=== PATIENT | male | born 1975 | race Caucasian/White ===

== ENCOUNTER 2016-10-28 21:00 | Emergency (ER) ==
--- NOTE | 2016-10-28 21:47 | PROVIDER DOCUMENTATION ---
HPI-Respiratory General - General Chief Complaint: Cough Stated Complaint: COUGH Time Seen by Provider: 10/28/16 21:42 Source: patient Allergies/Adverse Reactions: Patient Allergies Allergy/AdvReac Type Severity Reaction Status Date / Time No Known Allergies Allergy Verified 10/28/16 21:10 - History of Present Illness-Resp Nature of Presenting Problem: 41 y/o WM c/o cough x 2 years. Pt states that he was seen at an urgent care 2 years ago and was given a cough syrup, but states it didn't help. Pt states he is taking OTC medications like dayquil for the last 2 years but it is not helping. Pt states no productive cough normally, but states today productive of bloody sputum. Also reports bilat. hip pain, worse with weather. Denies any other sxs. Pt states he has HTN, but does not take anything for it. Review of Systems - Adult - REVIEW OF SYSTEMS - ADULT Constitutional: reports: no symptoms reported. denies: chills, fever Eyes: reports: no symptoms reported. denies: blurred vision, double vision Ears, Nose, Mouth & Throat: reports: no symptoms reported. denies: ear pain, nose pain Cardiovascular: reports: no symptoms reported. denies: chest pain, palpitations Respiratory: reports: see HPI, cough. denies: dyspnea on exertion, shortness of breath Gastrointestinal: reports: no symptoms reported. denies: abdominal pain, nausea , vomiting Genitourinary: reports: no symptoms reported. denies: dysuria, frequency Musculoskeletal: reports: see HPI, joint pain. denies: back pain, joint swelling, neck pain Integumentary: reports: no symptoms reported. denies: nail changes, rash Neurological: reports: no symptoms reported. denies: numbness, paresthesia Psychiatric: reports: no symptoms reported Endocrine: reports: no symptoms reported. denies: cold intolerance, heat intolerance Hematologic/Lymphatic: reports: no symptoms reported. denies: easy bruising, prolonged bleeding Allergic/Immunologic: reports: no symptoms reported All Other Systems: Reviewed and Negative Past History - Adult - PAST MEDICAL HISTORY-ADULT Review of Records: reports: Nursing Assessment Review, Medications Reviewed Cardiovascular: reports: HTN Respiratory: reports: denies history - SOCIAL HISTORY Smoking: cigarettes, less than 1 pack/day Provider spent 3-5 mins advising pt. on dangers of tobacco.: Discussed manners to quit use, and f/u contacts for add'l counseling. Alcohol Use Frequency: occasionally Number of drinks per typical drinking period:: 2 drinks Physical Exam-General - PHYSICAL EXAM-ADULT Initial Vital Signs Reviewed: Yes - CONSTITUTIONAL General Appearance: alert, mild distress - EYES Eyes: pink conjunctivae - HEAD, EARS, NOSE, MOUTH & THROAT HENMT: normocephalic/atraumatic, moist mucous membranes - NECK Neck: supple, normal inspection - RESPIRATORY Respiratory: lungs clear, normal breath sounds. negative: crackles, rales, rhonchi, stridor, wheezing - CARDIOVASCULAR Cardiovascular: tachycardia. negative: bradycardia - GASTROINTESTINAL (ABDOMEN) Abdominal Exam: normal bowel sounds - MUSCULOSKELETAL Back Exam: normal inspection Extremity: normal gait, normal inspection, normal capillary refill. negative: abnormal NV exam - SKIN Integumentary: normal color, normal turgor, warm/dry - NEUROLOGIC Neurologic: negative: aphasia - PSYCHIATRIC Psych/Mental Status: normal mood/affect, normal thought content, normal thought process, oriented x 3 Progress - PLAN OF CARE/RESULTS Progress/Plan/Lab Results: Orders Category Date Time Status CHEST-2 VIEWS [RAD] Stat Exams 10/28/16 21:11 Taken PELVIS [RAD] Stat Exams 10/28/16 21:50 Taken Clonidine [Catapres] Med 10/28/16 21:52 Discontinued 0.2 mg PO NOW ONE Vital Signs Temp Pulse Resp BP Pulse Ox 10/28/16 21:04 97.5 F L 119 H 17 169/103 96 No Known Allergies Allergy (Verified 10/28/16 21:10) Benzonatate [Tessalon] 100 mg PO TID PRN PRN #60 capsule 10/28/16 Meloxicam [Mobic] 15 mg PO DAILY #30 tablet 10/28/16 Discussed follow up with pt and return precautions. - XRAY 1 XRAY Study: Chest XRAY Interpretation: No PNA 2 XRAY Study: Pelvis XRAY Interpretation: No fx or dislocation Departure - Departure Time of Disposition Order: 22:10 DIAGNOSIS: Hip pain, bilateral, Cough Hypertension Qualifiers: Hypertension type: essential hypertension Qualified Code(s): I10 - Essential ( primary) hypertension Disposition: HOME 01 Certified Medical Emergency: Emergent Condition: Stable Additional Instructions: Take medications as directed. [facility] with specialist or [facility] for further [facility] and management. ED Follow Up Instructions: You have been treated by a care provider in the Emergency Department. These instructions are being provided to you so you can have an understanding of how to care for yourself upon discharge. Upon discharge from the Emergency Department, you are responsible for making arrangements for follow-up care by a physician of your choice. Take all prescribed medications as directed. Return to the Emergency Department immediately for any new or worsening symptoms. You may call the Physician Referral phone number at [phone] to obtain a list of Physicians who are taking new patients. Prescriptions: Meloxicam [Mobic] 15 mg PO DAILY #30 tablet Benzonatate [Tessalon] 100 mg PO TID PRN PRN #60 capsule PRN Reason: Cough Referrals: None,PCP [Primary Care Provider] - Laura Shukla MD [STAFF PHYSICIAN] - Roque Schmitz MD [STAFF PHYSICIAN] - Attestation - Physician/ Mid-level Attestation Patient care was provided by Mid-level provider (DRIVER SERVICE TECHNICIAN/PA):: Yes Mid-level provider:: Natalia Johnson Mid-level documentation review:: The Mid-level provider documentation, treatment plan and medical decision making was reviewed by the physician who agrees with all treatment and medical decision making by the P.
[2016-10-28] MEDS ORDERED: CATAPRES PO ONE (21:52)
[2016-10-28 22:42] VITALS: BP 166/84
--- NOTE | 2016-10-29 08:22 | Diag Imaging Result Document ---
PROCEDURE NAME: CHEST-2 VIEWS - 10/28/2016 FRONTAL AND LATERAL CHEST, TWO VIEWS: COMPARISON: No comparison films. FINDINGS: The lungs are well expanded. The heart is not enlarged. The vessels are not distended. There are no infiltrates. No pleural effusions. IMPRESSION: No pneumonia.
--- NOTE | 2016-10-29 08:38 | Diag Imaging Result Document ---
PROCEDURE NAME: PELVIS - 10/28/2016 AP PELVIS: FINDINGS: The hip joint spaces are well maintained. There is no evidence of fracture or dislocation. IMPRESSION: No acute disease.
== END 2016-10-28 22:43 | disposition home or self-care (01) ==
LOC: ED 21:00
DX: R05 Cough (principal); M25.552 Pain in left hip; M25.551 Pain in right hip; I10 Essential (primary) hypertension; R00.0 Tachycardia, unspecified; F17.210 Nicotine dependence, cigarettes, uncomplicated; Z71.6 Tobacco abuse counseling
CPT/HCPCS: 71020; 72170; 99283